=== PATIENT | female | born 1930 | race Caucasian/White ===

== ENCOUNTER → 2018-06-14 | Outpatient (CLI) | payer OTHER, MEDICARE | LOC: RAD 05-10 02:12 | DX: Z12.31 Encounter for screening mammogram for malignant neoplasm of breast (principal) ==

== ENCOUNTER → 2019-10-03 | Outpatient (CLI) | payer OTHER, MEDICARE | LOC: BC 10:34 | DX: Z12.31 Encounter for screening mammogram for malignant neoplasm of breast (principal) ==